=== PATIENT | male | born 1940 ===

== ENCOUNTER 2017-10-01 13:23 | Emergency (ER) | payer OTHER ==
[~2017-10-01] VITALS: Ht 172.7 cm; Wt 79.4 kg
[2017-10-02] MEDS ORDERED: CIPRO500 MG PO (00:32)
[2017-10-02] MEDS ORDERED: PEPCID AC20 MG PO (00:32)
[2017-10-02] MEDS ORDERED: LEVSIN/SL0.125 MG PO (00:32)
[2017-10-02] MEDS ORDERED: INTESTINEX680 M1 PO (00:32)
== END 2017-10-02 00:29 | disposition home or self-care (01) ==
LOC: ER 13:23
DX: K52.9 Noninfective gastroenteritis and colitis, unspecified (principal); N39.0 Urinary tract infection, site not specified

== ENCOUNTER → 2017-10-01 | Emergency (ER) | payer OTHER ==
[~2017-10-01] MED LIST: CIPRO500 MG PO; INTESTINEX680 M1 PO; LEVSIN/SL0.125 MG PO; PEPCID AC20 MG PO
== END | disposition left against medical advice (07) ==
LOC: ER 08:53
DX: Z53.20 Procedure and treatment not carried out because of patient's decision for unspecified reasons (principal)

== ENCOUNTER → 2019-10-20 14:14 | Outpatient (CLI) | payer OTHER | END | disposition home or self-care (01) | LOC: LAB 14:14 | PROVIDERS: ATTEND Radiology Diagnostic Radiology | DX: N20.0 Calculus of kidney (principal) ==

== ENCOUNTER 2019-10-28 07:43 | Outpatient (CLI) | payer OTHER | END 2019-10-28 07:58 | disposition home or self-care (01) | LOC: TOM 07:43 | PROVIDERS: ATTEND Internal Medicine Gastroenterology | DX: K59.01 Slow transit constipation (principal); K57.30 Diverticulosis of large intestine without perforation or abscess without bleeding; Z86.010 Personal history of colon polyps ==